=== PATIENT | female | born 1950 | race Caucasian/White ===

== ENCOUNTER 2019-10-20 14:24 | Inpatient (IN) ==
[2019-10-20] MEDS ORDERED: SODIUM CHLORIDE 0.9% 1,000 ML IV STA (14:53)
[2019-10-20 15:09] LABS: Basophils # 0.2 10*3/uL (0.0-0.2); Basophils % 1.5 % (0.0-0.8); Eosinophils # 0.1 10*3/uL (0.0-0.87); Eosinophils % 0.8 % (0.00-10.9); Hematocrit 41.6 VOL% (35.7-47.0); Hemoglobin 12.6 GM/DL (12.0-16.0); Immature Granulocytes % 0.4 %; Immature Granulocytes Absolute 0.04 #; Lymphocytes % 27.3 % (21.3-54.2); Mean Corpuscular HGB Conc 30.3 GM/DL (32-36); Mean Corpuscular Volume 76.8 FL (87-102); Mean Platelet Volume 10.1 FL (9.6-12.0); Monocytes % 5.8 % (1.7-12.7); Neutrophils % 64.2 % (38.7-73.9); Platelet Count 326 T/CUMM (130-400); Red Blood Count 5.42 MC/CUMM (3.8-5.5); Red Cell Distribution Width 18.6 % (9.3-17.3)
[2019-10-20 15:18] LABS: Albumin 2.7 G/DL (3.4-5.0); Bilirubin,Total 0.6 MG/DL (0.2-1.0); Osmolality,Calculated 274.7 MOS/KG (273-304)
[2019-10-20 15:20] LABS: PT Patient Result 10.4 SECS (9.6-12.2)
[2019-10-20] MEDS ORDERED: ACETAMINOPHEN 325 MG TABLET PO PRN (16:22)
[2019-10-20] MEDS ORDERED: ONDANSETRON 4 MG/2 ML VIAL IV PRN (16:22)
[2019-10-20] MEDS: SODIUM CHLORIDE 0.9% 1,000 ML IV SCH (18:55)
[2019-10-20] MEDS: PANTOPRAZOLE 40 MG VIAL IV SCH (21:06)
[2019-10-20] MEDS: POLYETHYLENE GLYCOL POWDER 17 GM PACK PO SCH (21:08)
[2019-10-21 02:09] LABS: Apearance,Urine CLEAR (Clear); Bacteria,Urine Occasional /HPF (Few); Bilirubin,Urine Negative (Negative); Blood, Urine Large mg/dL (Negative); Glucose,Urine (UA) Negative (Negative); Ketones,Urine Negative (Negative); Mucus,Urine Occasional /LPF (Occasional); Nitrite,Urine Negative (Negative); Protein,Urine Negative; RBC,Urine 2 /HPF (0-4); Squamous Epithelial Cell,Urine Occasional /HPF (0-10); Urine Color Yellow (Yellow); Urine Specific Gravity 1.009 (1.001-1.035); Urine Urobilinogen < 2.0 EU/DL (0.2-1.0); WBC,Urine 1 /HPF (0-6)
[2019-10-21 06:11] LABS: Basophils # 0.2 10*3/uL (0.0-0.2); Basophils % 2.1 % (0.0-0.8); Eosinophils # 0.3 10*3/uL (0.0-0.87); Eosinophils % 3.2 % (0.00-10.9); Hematocrit 35.8 VOL% (35.7-47.0); Hemoglobin 10.8 GM/DL (12.0-16.0); Immature Granulocytes % 0.3 %; Immature Granulocytes Absolute 0.03 #; Lymphocytes # 2.5 10*3/uL (1.4-4.0); Lymphocytes % 25.6 % (21.3-54.2); Mean Corpuscular HGB Conc 30.2 GM/DL (32-36); Mean Corpuscular Volume 77.5 FL (87-102); Neutrophils % 62.8 % (38.7-73.9); Platelet Count 301 T/CUMM (130-400); Red Blood Count 4.62 MC/CUMM (3.8-5.5); Red Cell Distribution Width 17.9 % (9.3-17.3); White Blood Count 9.6 T/CUMM (4-12)
[2019-10-21 06:12] LABS: Calcium 8.2 MG/DL (8.5-10.1); Osmolality,Calculated 280.1 MOS/KG (273-304); Thyroid Stimulating Hormone 0.029 uIU/ml (0.358-3.74)
[2019-10-21] MEDS: LEVOTHYROXINE 88 MCG TABLET PO SCH (06:35)
[2019-10-21] MEDS: SODIUM CHLORIDE 0.9% 1,000 ML IV SCH ×2 (06:36→22:46)
[2019-10-21] MEDS: PANTOPRAZOLE 40 MG VIAL IV SCH ×2 (09:08→20:35)
[2019-10-21] MEDS: PARoxetine 20 MG TABLET PO SCH (09:08)
[2019-10-21] MEDS: SIMVASTATIN 20 MG TABLET PO SCH (09:08)
[2019-10-21] MEDS: POLYETHYLENE GLYCOL POWDER 17 GM PACK PO SCH ×4 (09:08→20:35)
[2019-10-21] MEDS: amLODIPine 5 MG TABLET PO SCH (09:08)
[2019-10-21] MEDS: NICOTINE 21 MG/24 HR PATCH TRANSDERM SCH (16:48)
[2019-10-22 04:59] LABS: Basophils # 0.1 10*3/uL (0.0-0.2); Basophils % 1.4 % (0.0-0.8); Eosinophils # 0.4 10*3/uL (0.0-0.87); Eosinophils % 4.3 % (0.00-10.9); Hematocrit 34.8 VOL% (35.7-47.0); Hemoglobin 10.5 GM/DL (12.0-16.0); Immature Granulocytes % 0.2 %; Immature Granulocytes Absolute 0.02 #; Lymphocytes # 2.8 10*3/uL (1.4-4.0); Lymphocytes % 28.2 % (21.3-54.2); Mean Corpuscular HGB Conc 30.2 GM/DL (32-36); Mean Corpuscular Volume 76.7 FL (87-102); Mean Platelet Volume 10.1 FL (9.6-12.0); Monocytes % 6.6 % (1.7-12.7); Neutrophils % 59.3 % (38.7-73.9); Platelet Count 306 T/CUMM (130-400); Red Blood Count 4.54 MC/CUMM (3.8-5.5); Red Cell Distribution Width 17.6 % (9.3-17.3)
[2019-10-22 05:43] LABS: Calcium 8.1 MG/DL (8.5-10.1); Osmolality,Calculated 274.4 MOS/KG (273-304)
[2019-10-22] MEDS: LEVOTHYROXINE 88 MCG TABLET PO SCH (06:27)
[2019-10-22] MEDS ORDERED: MAGNESIUM SULF RIDER 2 GM in PREMIX 1 EACH IV PRN (07:50)
[2019-10-22] MEDS ORDERED: MAGNESIUM SULF RIDER 4 GM in PREMIX 1 EACH IV PRN (07:50)
[2019-10-22] MEDS: PANTOPRAZOLE 40 MG VIAL IV SCH (08:12)
[2019-10-22] MEDS: amLODIPine 5 MG TABLET PO SCH (08:13)
[2019-10-22] MEDS: SIMVASTATIN 20 MG TABLET PO SCH (08:13)
[2019-10-22] MEDS: POLYETHYLENE GLYCOL POWDER 17 GM PACK PO SCH ×2 (08:13→12:04)
[2019-10-22] MEDS: NICOTINE 21 MG/24 HR PATCH TRANSDERM SCH (08:13)
[2019-10-22] MEDS: PARoxetine 20 MG TABLET PO SCH (08:13)
[2019-10-22] MEDS: SODIUM CHLORIDE 0.9% 1,000 ML IV SCH (09:31)
[2019-10-22] MEDS: POTASSIUM CHLORIDE 20 MEQ TABLET PO PRN ×3 (09:32→13:25)
[2019-10-22 12:18] VITALS: BP 136/67
== END 2019-10-22 14:00 | disposition home or self-care (01) | DRG 379 ==
LOC: EDUNIT# → EDBD → N.ED 14:24 → SUATTDRO 15:23 → N.EDINP 15:23 → N.3E 17:46
PROVIDERS: ADMIT Internal Medicine; ATTEND Hospitalist

== ENCOUNTER 2020-01-12 12:32 | Inpatient (IN) ==
[2020-01-12] MEDS ORDERED: FUROSEMIDE 100 MG/10 ML VIAL IV STA (12:56)
[2020-01-12] MEDS ORDERED: ALBUTEROL/IPRATROPIUM 3 ML NEB RESP TX STA (12:56)
[2020-01-12 13:13] LABS: Basophils # 0.2 10*3/uL (0.0-0.2); Basophils % 1.2 % (0.0-0.8); Eosinophils # 0.1 10*3/uL (0.0-0.87); Eosinophils % 0.6 % (0.00-10.9); Hematocrit 38.6 VOL% (35.7-47.0); Hemoglobin 11.2 GM/DL (12.0-16.0); Immature Granulocytes % 0.5 %; Immature Granulocytes Absolute 0.07 #; Lymphocytes # 2.2 10*3/uL (1.4-4.0); Lymphocytes % 15.7 % (21.3-54.2); Mean Corpuscular Volume 72.7 FL (87-102); Monocytes % 6.1 % (1.7-12.7); Neutrophils % 75.9 % (38.7-73.9); Platelet Count 387 T/CUMM (130-400); Red Blood Count 5.31 MC/CUMM (3.8-5.5); Red Cell Distribution Width 17.8 % (9.3-17.3); White Blood Count 14.3 T/CUMM (4-12)
[2020-01-12 13:37] LABS: Albumin 3.1 G/DL (3.4-5.0); Bilirubin,Total 0.8 MG/DL (0.2-1.0); Calcium 8.2 MG/DL (8.5-10.1); Osmolality,Calculated 268.2 MOS/KG (273-304); Total Protein 8.1 G/DL (6.4-8.3)
[2020-01-12] MEDS ORDERED: FUROSEMIDE 20 MG/2 ML VIAL IV STA (14:57)
[2020-01-12] MEDS ORDERED: MAGNESIUM SULF RIDER 2 GM in PREMIX 1 EACH IV PRN (14:57)
[2020-01-12] MEDS ORDERED: MAGNESIUM SULF RIDER 4 GM in PREMIX 1 EACH IV PRN (14:57)
[2020-01-12] MEDS ORDERED: ONDANSETRON 4 MG/2 ML VIAL IV PRN (14:57)
[2020-01-12] MEDS ORDERED: ACETAMINOPHEN 325 MG TABLET PO PRN (14:57)
[2020-01-12 15:28] LABS: ABG Base Excess 9.5 MMOL/L (-2.5-2.5); ABG Oxygen Saturation 87.4 % (95-100); ABG PCO2 46.6 MM HG (35-48); ABG PH 7.476 (7.35-7.45); ABG TCO2 30.9 MMOL/L (23-27)
[2020-01-12] MEDS: NICOTINE 21 MG/24 HR PATCH TRANSDERM SCH (16:42)
[2020-01-12] MEDS: POTASSIUM CHLORIDE 20 MEQ TABLET PO PRN ×2 (17:15→23:00)
[2020-01-12] MEDS: ENOXAPARIN 40 MG/0.4 ML SYRINGE SUBCUT SCH (22:02)
[2020-01-13] MEDS: POTASSIUM CHLORIDE 20 MEQ TABLET PO PRN ×3 (01:00→13:26)
[2020-01-13 06:07] LABS: Basophils # 0.2 10*3/uL (0.0-0.2); Basophils % 1.3 % (0.0-0.8); Eosinophils # 0.2 10*3/uL (0.0-0.87); Eosinophils % 1.6 % (0.00-10.9); Immature Granulocytes % 0.4 %; Immature Granulocytes Absolute 0.05 #; Lymphocytes # 2.2 10*3/uL (1.4-4.0); Lymphocytes % 16.1 % (21.3-54.2); Mean Corpuscular HGB Conc 29.2 GM/DL (32-36); Mean Corpuscular Volume 71.3 FL (87-102); Monocytes % 7.2 % (1.7-12.7); Neutrophils % 73.4 % (38.7-73.9); Platelet Count 380 T/CUMM (130-400); Red Blood Count 5.23 MC/CUMM (3.8-5.5); Red Cell Distribution Width 17.5 % (9.3-17.3); White Blood Count 13.5 T/CUMM (4-12)
[2020-01-13 06:37] LABS: Albumin 2.8 G/DL (3.4-5.0); Bilirubin,Total 1.1 MG/DL (0.2-1.0); Calcium 8.6 MG/DL (8.5-10.1); Osmolality,Calculated 268.2 MOS/KG (273-304); Thyroid Stimulating Hormone 0.077 uIU/ml (0.358-3.74); Total Protein 7.3 G/DL (6.4-8.3)
[2020-01-13 06:39] LABS: Hematocrit 36.9 VOL% (35.7-47.0)
[2020-01-13 06:40] LABS: Hemoglobin 10.9 GM/DL (12.0-16.0)
[2020-01-13] MEDS: lisinopriL 5 MG TABLET PO SCH (09:06)
[2020-01-13] MEDS: NICOTINE 21 MG/24 HR PATCH TRANSDERM SCH (09:06)
[2020-01-13] MEDS: FUROSEMIDE 40 MG/4 ML VIAL IV SCH ×2 (09:06→16:53)
[2020-01-13] MEDS: PANTOPRAZOLE 40 MG TABLET PO SCH (09:06)
[2020-01-13] MEDS: ALBUTEROL/IPRATROPIUM 3 ML NEB RESP TX SCH ×3 (11:29→20:35)
[2020-01-13] MEDS: ENOXAPARIN 40 MG/0.4 ML SYRINGE SUBCUT SCH (22:04)
[2020-01-14] MEDS: ALBUTEROL/IPRATROPIUM 3 ML NEB RESP TX SCH ×4 (02:25→10:45)
[2020-01-14 04:57] LABS: Basophils # 0.2 10*3/uL (0.0-0.2); Basophils % 1.3 % (0.0-0.8); Eosinophils # 0.2 10*3/uL (0.0-0.87); Eosinophils % 1.6 % (0.00-10.9); Immature Granulocytes % 0.3 %; Immature Granulocytes Absolute 0.04 #; Lymphocytes # 2.5 10*3/uL (1.4-4.0); Lymphocytes % 19.1 % (21.3-54.2); Mean Corpuscular HGB Conc 29.3 GM/DL (32-36); Mean Corpuscular Volume 71.1 FL (87-102); Mean Platelet Volume 9.1 FL (9.6-12.0); Monocytes % 7.4 % (1.7-12.7); Neutrophils % 70.3 % (38.7-73.9); Platelet Count 398 T/CUMM (130-400); Red Blood Count 5.09 MC/CUMM (3.8-5.5); Red Cell Distribution Width 17.5 % (9.3-17.3); White Blood Count 12.8 T/CUMM (4-12)
[2020-01-14 05:17] LABS: Hematocrit 36.1 VOL% (35.7-47.0); Hemoglobin 10.6 GM/DL (12.0-16.0)
[2020-01-14 05:20] LABS: Albumin 2.7 G/DL (3.4-5.0); Bilirubin,Total 0.7 MG/DL (0.2-1.0); Calcium 8.4 MG/DL (8.5-10.1); Osmolality,Calculated 266.5 MOS/KG (273-304); Total Protein 7.2 G/DL (6.4-8.3)
[2020-01-14] MEDS: FUROSEMIDE 40 MG/4 ML VIAL IV SCH (09:15)
[2020-01-14] MEDS: NICOTINE 21 MG/24 HR PATCH TRANSDERM SCH (09:16)
[2020-01-14] MEDS: lisinopriL 5 MG TABLET PO SCH (09:16)
[2020-01-14] MEDS: PANTOPRAZOLE 40 MG TABLET PO SCH (09:16)
[2020-01-14 12:36] VITALS: BP 96/51
[2020-01-14] MEDS ORDERED: SPIRONOLACTONE 50 MG TABLET PO SCH (13:17)
== END 2020-01-14 14:50 | disposition home or self-care (01) | DRG 291 ==
LOC: N.ED 12:32 → N.EDINP 14:57 → N.TELEN 15:29
PROVIDERS: ADMIT Family Medicine; ATTEND Family Medicine

== ENCOUNTER 2022-02-21 11:37 | Inpatient (IN) ==
[2022-02-21] MEDS ORDERED: SODIUM CHLORIDE 0.9% 500 ML IV STA (13:28)
[2022-02-21 14:37] LABS: Albumin 2.3 G/DL (3.4-5.0); Bilirubin,Total 1.6 MG/DL (0.20-1.00); Osmolality,Calculated 276.2 MOS/KG (273-304); Potassium 4.9 MMOL/L (3.5-5.1); Total Protein 5.9 G/DL (6.4-8.2)
[2022-02-21 14:42] LABS: Basophils % 0.1 % (0.0-0.8); Eosinophils # 0.1 10*3/uL (0.0-0.87); Eosinophils % 0.5 % (0.00-10.9); Hematocrit 48.6 VOL% (35.7-47.0); Hemoglobin 14.8 GM/DL (12.0-16.0); Immature Granulocytes % 0.8 %; Immature Granulocytes Absolute 0.17 #; Lymphocytes # 2.4 10*3/uL (1.4-4.0); Mean Corpuscular HGB Conc 30.5 GM/DL (32-36); Mean Corpuscular Volume 76.5 FL (87-102); Mean Platelet Volume 8.5 FL (9.6-12.0); Neutrophils % 79.6 % (38.7-73.9); Platelet Count 350 T/CUMM (130-400); Red Blood Count 6.35 MC/CUMM (3.8-5.5); Red Cell Distribution Width 22.9 % (9.3-17.3)
[2022-02-21 15:16] LABS: Atypical Lymphocytes Few; Eosinophils 1 % (0-10); Hypochromia Slight; Lymphocytes 9 % (20-55); Platelet Estimate Normal; Segmented Neutrophils 82 % (50-85); Total Cells Counted 100
[2022-02-21 15:57] LABS: Amorphous Crystals,Urine Occasional /HPF (Few); Bacteria,Urine Occasional /HPF (Few); RBC,Urine <1 /HPF (0-4)
[2022-02-21] MEDS ORDERED: GLUCAGON 1 MG VIAL IM PRN (15:58)
[2022-02-21] MEDS ORDERED: ONDANSETRON 4 MG/2 ML VIAL IV PRN (15:58)
[2022-02-21] MEDS ORDERED: ACETAMINOPHEN 325 MG TABLET PO PRN (15:58)
[2022-02-21 15:59] LABS: Bilirubin,Urine Negative (Negative); Blood, Urine Negative (Negative); Glucose,Urine (UA) Negative (Negative); Ketones,Urine Negative (Negative); Nitrite,Urine Negative (Negative); Protein,Urine Negative (Negative); Urine Appearance Clear (Clear); Urine Color Yellow (Yellow); Urine Specific Gravity 1.015 (1.001-1.035); Urine Urobilinogen 0.2 eU/dL (<2.0); Urine pH 5.5 (4.5-8.0)
[2022-02-21] MEDS ORDERED: DEXTROSE 10% 250 ML BAG IV PRN (16:07)
[2022-02-21] MEDS ORDERED: ALBUTEROL 2.5 MG/3 ML NEB RESP TX PRN (16:10)
[2022-02-21] MEDS: ALBUTEROL/IPRATROPIUM 3 ML NEB RESP TX SCH (19:50)
[2022-02-21 21:13] LABS: Arterial Base Excess iSTAT 2 MMOL/L (-2.5-2.5); Arterial Bicarbonate iSTAT 27.6 MMOL/L (20-26); Arterial O2 Saturation iSTAT 90 % (95-100); Arterial PCO2 iSTAT 45 MM HG (35-48); Arterial PO2 iSTAT 59 MM HG (80-95); Arterial Total CO2 iSTAT 29 MMO/L (23-27); Arterial pH iSTAT 7.397 (7.35-7.45)
[2022-02-21] MEDS: NON-FORMULARY MEDICATION (Budesonide-Glycopyr-Formoterol [Breztri Aerosphere] 160-9-4.8 mc INH SCH (21:52)
[2022-02-21] MEDS: NON-FORMULARY MEDICATION (Fluticasone Furoate-Vilanterol [Breo Ellipta] 200-25 mcg/dose Bl INH SCH (21:52)
[2022-02-22] MEDS: ALBUTEROL/IPRATROPIUM 3 ML NEB RESP TX SCH ×7 (00:11→23:51)
[2022-02-22 05:49] LABS: Basophils % 0.1 % (0.0-0.8); Eosinophils # 0.1 10*3/uL (0.0-0.87); Eosinophils % 0.5 % (0.00-10.9); Hematocrit 47.7 VOL% (35.7-47.0); Hemoglobin 14.6 GM/DL (12.0-16.0); Immature Granulocytes % 0.6 %; Immature Granulocytes Absolute 0.09 #; Lymphocytes # 1.8 10*3/uL (1.4-4.0); Lymphocytes % 11.4 % (21.3-54.2); Mean Corpuscular HGB Conc 30.6 GM/DL (32-36); Mean Corpuscular Volume 77.3 FL (87-102); Mean Platelet Volume 9.1 FL (9.6-12.0); Monocytes % 6.5 % (1.7-12.7); Neutrophils % 80.9 % (38.7-73.9); Platelet Count 367 T/CUMM (130-400); Red Blood Count 6.17 MC/CUMM (3.8-5.5); Red Cell Distribution Width 22.7 % (9.3-17.3); White Blood Count 15.9 T/CUMM (4-12)
[2022-02-22 05:56] LABS: Platelet Estimate Normal
[2022-02-22 05:57] LABS: Anisocytosis Slight; Target Cells Few
[2022-02-22 05:58] LABS: Albumin 2.2 G/DL (3.4-5.0); Bilirubin,Total 2.1 MG/DL (0.20-1.00); Calcium 8.4 MG/DL (8.5-10.1); Osmolality,Calculated 275.1 MOS/KG (273-304); Total Protein 5.7 G/DL (6.4-8.2)
[2022-02-22 06:04] LABS: Potassium 4.9 MMOL/L (3.5-5.1)
[2022-02-22] MEDS: LEVOTHYROXINE 75 MCG TABLET PO SCH (06:23)
[2022-02-22] MEDS: PANTOPRAZOLE 40 MG TABLET PO SCH (08:02)
[2022-02-22] MEDS: ASPIRIN EC 81 MG TABLET PO SCH (08:02)
[2022-02-22] MEDS: PARoxetine 20 MG TABLET PO SCH (08:03)
[2022-02-22] MEDS ORDERED: FUROSEMIDE 40 MG/4 ML VIAL IV SCH (09:00)
[2022-02-22] MEDS: LOSARTAN 25 MG TABLET PO SCH (09:47)
[2022-02-22] MEDS: SIMVASTATIN 20 MG TABLET PO SCH (09:47)
[2022-02-22] MEDS: NON-FORMULARY MEDICATION (Budesonide-Glycopyr-Formoterol [Breztri Aerosphere] 160-9-4.8 mc INH SCH ×2 (10:35→21:43)
[2022-02-22] MEDS: NON-FORMULARY MEDICATION (Fluticasone Furoate-Vilanterol [Breo Ellipta] 200-25 mcg/dose Bl INH SCH (10:36)
[2022-02-23] MEDS: ALBUTEROL/IPRATROPIUM 3 ML NEB RESP TX SCH ×6 (03:15→23:37)
[2022-02-23] MEDS: LEVOTHYROXINE 75 MCG TABLET PO SCH (06:37)
[2022-02-23 07:20] LABS: Calcium 7.9 MG/DL (8.5-10.1); Osmolality,Calculated 273.1 MOS/KG (273-304); Potassium 3.9 MMOL/L (3.5-5.1)
[2022-02-23 07:26] LABS: Basophils % 0.3 % (0.0-0.8); Eosinophils # 0.1 10*3/uL (0.0-0.87); Eosinophils % 0.9 % (0.00-10.9); Hematocrit 43.3 VOL% (35.7-47.0); Hemoglobin 13.2 GM/DL (12.0-16.0); Immature Granulocytes % 0.5 %; Immature Granulocytes Absolute 0.07 #; Lymphocytes % 14.1 % (21.3-54.2); Mean Corpuscular HGB Conc 30.5 GM/DL (32-36); Mean Platelet Volume 9.2 FL (9.6-12.0); Monocytes % 7.6 % (1.7-12.7); Neutrophils % 76.6 % (38.7-73.9); Platelet Count 309 T/CUMM (130-400); Red Cell Distribution Width 21.7 % (9.3-17.3)
[2022-02-23] MEDS: LOSARTAN 25 MG TABLET PO SCH (08:03)
[2022-02-23 08:23] LABS: Free T4 (Free Thyroxine) 0.93 NG/DL (0.76-1.46)
[2022-02-23] MEDS: PANTOPRAZOLE 40 MG TABLET PO SCH (08:54)
[2022-02-23] MEDS: ASPIRIN EC 81 MG TABLET PO SCH (08:54)
[2022-02-23] MEDS: PARoxetine 20 MG TABLET PO SCH (08:55)
[2022-02-23] MEDS: predniSONE 20 MG TABLET PO SCH (08:55)
[2022-02-23] MEDS: ENOXAPARIN 40 MG/0.4 ML SYRINGE SUBCUT SCH (08:55)
[2022-02-23] MEDS: SIMVASTATIN 20 MG TABLET PO SCH (08:55)
[2022-02-23] MEDS: LIDOCAINE 5% PATCH TRANSDERM SCH (08:56)
[2022-02-23] MEDS: NON-FORMULARY MEDICATION (Budesonide-Glycopyr-Formoterol [Breztri Aerosphere] 160-9-4.8 mc INH SCH ×2 (09:35→20:50)
[2022-02-24] MEDS: ALBUTEROL/IPRATROPIUM 3 ML NEB RESP TX SCH ×6 (03:31→23:50)
[2022-02-24] MEDS: LEVOTHYROXINE 75 MCG TABLET PO SCH (06:26)
[2022-02-24 06:36] LABS: Basophils % 0.2 % (0.0-0.8); Eosinophils # 0.1 10*3/uL (0.0-0.87); Eosinophils % 0.9 % (0.00-10.9); Hematocrit 42.3 VOL% (35.7-47.0); Hemoglobin 12.8 GM/DL (12.0-16.0); Immature Granulocytes % 0.6 %; Immature Granulocytes Absolute 0.06 #; Lymphocytes # 2.5 10*3/uL (1.4-4.0); Lymphocytes % 23.3 % (21.3-54.2); Mean Corpuscular HGB Conc 30.3 GM/DL (32-36); Mean Corpuscular Volume 76.9 FL (87-102); Mean Platelet Volume 9.2 FL (9.6-12.0); Monocytes % 7.6 % (1.7-12.7); Neutrophils % 67.4 % (38.7-73.9); Platelet Count 283 T/CUMM (130-400); Red Cell Distribution Width 21.5 % (9.3-17.3); White Blood Count 10.5 T/CUMM (4-12)
[2022-02-24 06:48] LABS: Calcium 7.9 MG/DL (8.5-10.1); Osmolality,Calculated 270.2 MOS/KG (273-304); Potassium 3.8 MMOL/L (3.5-5.1)
[2022-02-24] MEDS: LOSARTAN 25 MG TABLET PO SCH (09:07)
[2022-02-24] MEDS: PARoxetine 20 MG TABLET PO SCH (09:07)
[2022-02-24] MEDS: SIMVASTATIN 20 MG TABLET PO SCH (09:07)
[2022-02-24] MEDS: ASPIRIN EC 81 MG TABLET PO SCH (09:07)
[2022-02-24] MEDS: PANTOPRAZOLE 40 MG TABLET PO SCH (09:07)
[2022-02-24] MEDS: LIDOCAINE 5% PATCH TRANSDERM SCH (09:11)
[2022-02-24] MEDS: ENOXAPARIN 40 MG/0.4 ML SYRINGE SUBCUT SCH (09:13)
[2022-02-24] MEDS: NON-FORMULARY MEDICATION (Budesonide-Glycopyr-Formoterol [Breztri Aerosphere] 160-9-4.8 mc INH SCH ×2 (10:11→20:47)
[2022-02-25] MEDS: ALBUTEROL/IPRATROPIUM 3 ML NEB RESP TX SCH ×5 (03:30→19:54)
[2022-02-25 07:27] LABS: Calcium 8.3 MG/DL (8.5-10.1); Osmolality,Calculated 268.1 MOS/KG (273-304); Potassium 4.5 MMOL/L (3.5-5.1)
[2022-02-25 07:37] LABS: Basophils # 0.1 10*3/uL (0.0-0.2); Basophils % 0.7 % (0.0-0.8); Eosinophils # 0.2 10*3/uL (0.0-0.87); Eosinophils % 2.1 % (0.00-10.9); Hematocrit 44.5 VOL% (35.7-47.0); Hemoglobin 13.4 GM/DL (12.0-16.0); Immature Granulocytes % 0.6 %; Immature Granulocytes Absolute 0.06 #; Lymphocytes # 2.2 10*3/uL (1.4-4.0); Lymphocytes % 20.5 % (21.3-54.2); Mean Corpuscular HGB Conc 30.1 GM/DL (32-36); Mean Corpuscular Volume 77.8 FL (87-102); Neutrophils % 68.1 % (38.7-73.9); Platelet Count 311 T/CUMM (130-400); Red Blood Count 5.72 MC/CUMM (3.8-5.5); Red Cell Distribution Width 22.1 % (9.3-17.3); White Blood Count 10.7 T/CUMM (4-12)
[2022-02-25 07:38] LABS: Anisocytosis Slight; Platelet Estimate Normal; Target Cells Few
[2022-02-25 07:39] LABS: Macrocytosis Slight
[2022-02-25] MEDS: LEVOTHYROXINE 100 MCG TABLET PO SCH (07:52)
[2022-02-25] MEDS: ASPIRIN EC 81 MG TABLET PO SCH (08:35)
[2022-02-25] MEDS: LIDOCAINE 5% PATCH TRANSDERM SCH (08:36)
[2022-02-25] MEDS: NON-FORMULARY MEDICATION (Budesonide-Glycopyr-Formoterol [Breztri Aerosphere] 160-9-4.8 mc INH SCH ×2 (08:36→20:12)
[2022-02-25] MEDS: LOSARTAN 25 MG TABLET PO SCH (08:36)
[2022-02-25] MEDS: PANTOPRAZOLE 40 MG TABLET PO SCH (08:36)
[2022-02-25] MEDS: predniSONE 20 MG TABLET PO SCH (08:36)
[2022-02-25] MEDS: PARoxetine 20 MG TABLET PO SCH (08:36)
[2022-02-25] MEDS ORDERED: TISSUE ADHESIVE 1 EACH APPLICATOR TOP ONE (09:07)
[2022-02-25] MEDS ORDERED: DEXAMETHASONE 10 MG/1 ML VIAL ONE (09:07)
[2022-02-25] MEDS ORDERED: LIDOCAINE 1% 50 ML VIAL ONE (09:08)
[2022-02-25] MEDS ORDERED: CLINDAMYCIN INJ 300 MG/50 ML PREMIX IV ONE (09:25)
[2022-02-25] MEDS ORDERED: LIDOCAINE 2% 5 ML VIAL ONE (09:25)
[2022-02-25] MEDS ORDERED: propofoL 200 MG/20 ML VIAL IV ONE (09:25)
[2022-02-25] MEDS ORDERED: fentaNYL 100 MCG/2 ML VIAL ONE (09:25)
[2022-02-25] MEDS ORDERED: METOPROLOL TARTRATE 5 MG/5 ML VIAL IV ONE (12:05)
[2022-02-25] MEDS ORDERED: DEXTROSE 5% NACL 0.45% 500 ML IV ONE (12:10)
[2022-02-25] MEDS ORDERED: DEXTROSE 5% NACL 0.45% 500 ML IV SCH (12:10)
[2022-02-25] MEDS ORDERED: DIGOXIN 0.5 MG/2 ML AMP IV ONE (12:20)
[2022-02-25] MEDS ORDERED: ALBUTEROL/IPRATROPIUM 3 ML NEB RESP TX PRN (20:47)
[2022-02-25] MEDS ORDERED: SIMVASTATIN 20 MG TABLET PO SCH (21:00)
[2022-02-26] MEDS: ALBUTEROL/IPRATROPIUM 3 ML NEB RESP TX SCH ×3 (00:12→07:20)
[2022-02-26] MEDS: LEVOTHYROXINE 100 MCG TABLET PO SCH (05:30)
[2022-02-26 06:25] LABS: Calcium 8.2 MG/DL (8.5-10.1); Osmolality,Calculated 267.1 MOS/KG (273-304); Potassium 4.5 MMOL/L (3.5-5.1)
[2022-02-26 06:33] LABS: Basophils % 0.4 % (0.0-0.8); Eosinophils # 0.2 10*3/uL (0.0-0.87); Eosinophils % 2.2 % (0.00-10.9); Immature Granulocytes % 0.3 %; Immature Granulocytes Absolute 0.03 #; Lymphocytes # 1.7 10*3/uL (1.4-4.0); Lymphocytes % 18.7 % (21.3-54.2); Mean Corpuscular HGB Conc 29.8 GM/DL (32-36); Mean Platelet Volume 9.7 FL (9.6-12.0); Monocytes % 7.7 % (1.7-12.7); Neutrophils % 70.7 % (38.7-73.9); Platelet Count 269 T/CUMM (130-400); Red Blood Count 5.52 MC/CUMM (3.8-5.5); Red Cell Distribution Width 21.7 % (9.3-17.3); White Blood Count 8.9 T/CUMM (4-12)
[2022-02-26 06:34] LABS: Hematocrit 43.6 VOL% (35.7-47.0)
[2022-02-26] MEDS: ASPIRIN EC 81 MG TABLET PO SCH (08:15)
[2022-02-26] MEDS: PANTOPRAZOLE 40 MG TABLET PO SCH (08:15)
[2022-02-26] MEDS: PARoxetine 20 MG TABLET PO SCH (08:15)
[2022-02-26] MEDS: LIDOCAINE 5% PATCH TRANSDERM SCH (08:16)
[2022-02-26] MEDS ORDERED: LOSARTAN 25 MG TABLET PO SCH (09:00)
[2022-02-26] MEDS ORDERED: METOPROLOL SUCCINATE XL 25 MG TABLET PO SCH (09:00)
[2022-02-26] MEDS: NON-FORMULARY MEDICATION (Budesonide-Glycopyr-Formoterol [Breztri Aerosphere] 160-9-4.8 mc INH SCH (11:07)
[2022-02-26] MEDS: ENOXAPARIN 40 MG/0.4 ML SYRINGE SUBCUT SCH (11:11)
[2022-02-26 11:43] VITALS: BP 99/48
[2022-02-26] MEDS ORDERED: DIGOXIN 0.125 MG TABLET PO SCH (13:00)
== END 2022-02-26 12:42 | disposition home health service (06) | DRG 982 ==
LOC: SUATTDRO → N.ED 11:37 → SUATTDRO 15:58 → N.EDINP 15:58 → N.3E 19:30
PROVIDERS: ADMIT Internal Medicine; ATTEND Internal Medicine

== ENCOUNTER 2022-02-26 17:48 | Inpatient (IN) ==
[2022-02-26] MEDS ORDERED: SODIUM CHLORIDE 0.9% 500 ML IV STA (18:14)
[2022-02-26 18:54] LABS: Albumin 2.3 G/DL (3.4-5.0); Bilirubin,Total 1.2 MG/DL (0.20-1.00); Calcium 8.1 MG/DL (8.5-10.1); Osmolality,Calculated 272.1 MOS/KG (273-304); Total Protein 5.2 G/DL (6.4-8.2)
[2022-02-26 19:00] LABS: Thyroid Stimulating Hormone 17.2 uIU/ml (0.358-3.74)
[2022-02-26 19:02] LABS: Basophils # 0.1 10*3/uL (0.0-0.2); Basophils % 0.5 % (0.0-0.8); Eosinophils # 0.1 10*3/uL (0.0-0.87); Eosinophils % 0.4 % (0.00-10.9); Immature Granulocytes % 0.8 %; Immature Granulocytes Absolute 0.12 #; Lymphocytes # 1.4 10*3/uL (1.4-4.0); Lymphocytes % 9.7 % (21.3-54.2); Mean Corpuscular HGB Conc 28.9 GM/DL (32-36); Mean Corpuscular Volume 80.2 FL (87-102); Mean Platelet Volume 9.7 FL (9.6-12.0); Monocytes % 5.6 % (1.7-12.7); Platelet Count 294 T/CUMM (130-400); Red Blood Count 5.86 MC/CUMM (3.8-5.5); White Blood Count 14.2 T/CUMM (4-12)
[2022-02-26 19:07] LABS: Hemoglobin 13.6 GM/DL (12.0-16.0)
[2022-02-26 20:29] LABS: ABG Base Excess 3.6 MMOL/L (-2.5-2.5); ABG HCO3 27.2 MMOL/L (20-26); ABG Oxygen Saturation 81.7 % (95-100); ABG PCO2 53.5 MM HG (35-48); ABG PH 7.362 (7.35-7.45); ABG TCO2 26.8 MMOL/L (23-27)
[2022-02-26 20:32] LABS: Bacteria,Urine Occasional /HPF (Few); RBC,Urine 1 /HPF (0-4)
[2022-02-26 20:33] LABS: Bilirubin,Urine Negative (Negative); Blood, Urine Negative (Negative); Glucose,Urine (UA) Negative (Negative); Ketones,Urine Negative (Negative); Nitrite,Urine Negative (Negative); Protein,Urine Negative (Negative); Urine Appearance Clear (Clear); Urine Color Yellow (Yellow); Urine pH 5.5 (4.5-8.0)
[2022-02-26 20:38] LABS: Barbiturates Screen,Urine Negative (Negative); Benzodiazepines Screen,Urine Negative (Negative); Cannabinoid Screen,Urine Negative (Negative); Opiate Screen,Urine Negative (Negative); Phencyclidine Screen,Urine Negative (Negative)
[2022-02-26] MEDS ORDERED: ALBUTEROL/IPRATROPIUM 3 ML NEB RESP TX STA (21:17)
[2022-02-26] MEDS ORDERED: methylPREDNISolone SOD SUC 125 MG/2 ML VIAL IV STA (21:26)
[2022-02-26] MEDS ORDERED: ONDANSETRON 4 MG/2 ML VIAL IV PRN (23:05)
[2022-02-26] MEDS ORDERED: hydrALAZINE 20 MG/1 ML VIAL IV PRN (23:05)
[2022-02-26] MEDS ORDERED: DEXTROSE 10% 250 ML BAG IV PRN (23:05)
[2022-02-26] MEDS ORDERED: diphenhydrAMINE CAP 25 MG CAPSULE PO PRN (23:05)
[2022-02-26] MEDS ORDERED: MORPHINE 2 MG/1 ML SYRINGE IV PRN (23:05)
[2022-02-26] MEDS ORDERED: DOCUSATE SODIUM 100 MG CAPSULE PO PRN (23:05)
[2022-02-26] MEDS ORDERED: guaiFENesin/DM ER 600-30 MG TABLET PO PRN (23:05)
[2022-02-26] MEDS ORDERED: GLUCAGON 1 MG VIAL IM PRN (23:05)
[2022-02-26] MEDS ORDERED: NICOTINE 21 MG/24 HR PATCH TRANSDERM PRN (23:05)
[2022-02-26] MEDS ORDERED: ZALEPLON 5 MG CAPSULE PO PRN (23:05)
[2022-02-26] MEDS ORDERED: ACETAMINOPHEN 325 MG TABLET PO PRN (23:05)
[2022-02-27] MEDS: LEVOFLOXACIN INJ 750 MG/150 ML PREMIX IV SCH ×2 (00:40→23:13)
[2022-02-27] MEDS ORDERED: FUROSEMIDE 40 MG/4 ML VIAL IV ONE (00:49)
[2022-02-27] MEDS ORDERED: ENOXAPARIN 60 MG/0.6 ML SYRINGE SUBCUT ONE (00:50)
[2022-02-27] MEDS: methylPREDNISolone SOD SUC 125 MG/2 ML VIAL IV SCH ×2 (01:06→09:08)
[2022-02-27 05:26] LABS: Calcium 8.2 MG/DL (8.5-10.1); Osmolality,Calculated 271.2 MOS/KG (273-304); Potassium 4.3 MMOL/L (3.5-5.1)
[2022-02-27 05:35] LABS: Basophils % 0.1 % (0.0-0.8); Hemoglobin 13.7 GM/DL (12.0-16.0); Immature Granulocytes % 1.4 %; Immature Granulocytes Absolute 0.26 #; Lymphocytes # 0.4 10*3/uL (1.4-4.0); Lymphocytes % 2.2 % (21.3-54.2); Mean Corpuscular HGB Conc 29.8 GM/DL (32-36); Mean Platelet Volume 9.9 FL (9.6-12.0); Monocytes % 0.3 % (1.7-12.7); Platelet Count 265 T/CUMM (130-400); Red Blood Count 5.82 MC/CUMM (3.8-5.5); Red Cell Distribution Width 21.9 % (9.3-17.3); White Blood Count 18.8 T/CUMM (4-12)
[2022-02-27] MEDS: LEVOTHYROXINE 75 MCG TABLET PO SCH (05:41)
[2022-02-27 05:46] LABS: Lymphocytes 1 % (20-55); Platelet Estimate Adequate; Segmented Neutrophils 99 % (50-85); Total Cells Counted 100
[2022-02-27] MEDS: ALBUTEROL/IPRATROPIUM 3 ML NEB RESP TX SCH ×4 (08:56→23:00)
[2022-02-27] MEDS: PANTOPRAZOLE 40 MG TABLET PO SCH (09:07)
[2022-02-27] MEDS: ASPIRIN EC 81 MG TABLET PO SCH (09:07)
[2022-02-27] MEDS: ASCORBIC ACID 500 MG TABLET PO SCH ×2 (11:26→20:39)
[2022-02-27] MEDS: methylPREDNISolone SOD SUC 40 MG/1 ML VIAL IV SCH (16:08)
[2022-02-27] MEDS: SIMVASTATIN 20 MG TABLET PO SCH (20:39)
[2022-02-28] MEDS: methylPREDNISolone SOD SUC 40 MG/1 ML VIAL IV SCH ×3 (00:41→18:20)
[2022-02-28] MEDS: ALBUTEROL/IPRATROPIUM 3 ML NEB RESP TX SCH ×8 (03:15→23:50)
[2022-02-28] MEDS: LEVOTHYROXINE 75 MCG TABLET PO SCH (05:41)
[2022-02-28 07:10] LABS: Arterial Base Excess iSTAT 8 MMOL/L (-2.5-2.5); Arterial Bicarbonate iSTAT 33.5 MMOL/L (20-26); Arterial O2 Saturation iSTAT 90 % (95-100); Arterial PCO2 iSTAT 50 MM HG (35-48); Arterial PO2 iSTAT 58 MM HG (80-95); Arterial Total CO2 iSTAT 35 MMO/L (23-27); Arterial pH iSTAT 7.438 (7.35-7.45)
[2022-02-28 08:53] LABS: Basophils % 0.1 % (0.0-0.8); Hematocrit 42.1 VOL% (35.7-47.0); Lymphocytes # 0.5 10*3/uL (1.4-4.0); Lymphocytes % 5.2 % (21.3-54.2); Mean Corpuscular HGB Conc 29.7 GM/DL (32-36); Mean Corpuscular Volume 80.2 FL (87-102); Mean Platelet Volume 9.8 FL (9.6-12.0); Monocytes % 1.8 % (1.7-12.7); Neutrophils % 91.9 % (38.7-73.9); Platelet Count 269 T/CUMM (130-400); Red Blood Count 5.25 MC/CUMM (3.8-5.5); Red Cell Distribution Width 21.9 % (9.3-17.3); White Blood Count 10.2 T/CUMM (4-12)
[2022-02-28 08:54] LABS: Albumin 2.4 G/DL (3.4-5.0); Bilirubin,Total 0.8 MG/DL (0.20-1.00); Calcium 8.7 MG/DL (8.5-10.1); Hemoglobin 12.5 GM/DL (12.0-16.0); Osmolality,Calculated 274.8 MOS/KG (273-304); Potassium 4.2 MMOL/L (3.5-5.1); Total Protein 5.9 G/DL (6.4-8.2)
[2022-02-28 08:55] LABS: Hypochromia Slight; Lymphocytes 8 % (20-55); Microcytosis Slight; Platelet Estimate Adequate; Segmented Neutrophils 89 % (50-85); Total Cells Counted 100
[2022-02-28] MEDS: ASPIRIN EC 81 MG TABLET PO SCH (09:21)
[2022-02-28] MEDS: ASCORBIC ACID 500 MG TABLET PO SCH ×2 (09:22→21:00)
[2022-02-28] MEDS: PANTOPRAZOLE 40 MG TABLET PO SCH (09:24)
[2022-02-28] MEDS: METOPROLOL SUCCINATE XL 25 MG TABLET PO SCH (09:24)
[2022-02-28] MEDS: LEVOFLOXACIN INJ 750 MG/150 ML PREMIX IV SCH ×2 (21:00→22:30)
[2022-02-28] MEDS: SIMVASTATIN 20 MG TABLET PO SCH (21:00)
[2022-03-01] MEDS: methylPREDNISolone SOD SUC 40 MG/1 ML VIAL IV SCH ×2 (00:05→10:03)
[2022-03-01] MEDS: ALBUTEROL/IPRATROPIUM 3 ML NEB RESP TX SCH ×6 (03:50→22:47)
[2022-03-01] MEDS: LEVOTHYROXINE 75 MCG TABLET PO SCH (05:35)
[2022-03-01 06:13] LABS: Albumin 2.2 G/DL (3.4-5.0); Bilirubin,Total 0.6 MG/DL (0.20-1.00); Calcium 8.6 MG/DL (8.5-10.1); Osmolality,Calculated 273.8 MOS/KG (273-304); Potassium 4.2 MMOL/L (3.5-5.1); Total Protein 5.6 G/DL (6.4-8.2)
[2022-03-01 06:22] LABS: Basophils % 0.1 % (0.0-0.8); Immature Granulocytes % 0.8 %; Immature Granulocytes Absolute 0.09 #; Lymphocytes # 0.6 10*3/uL (1.4-4.0); Mean Corpuscular HGB Conc 29.9 GM/DL (32-36); Mean Corpuscular Volume 79.2 FL (87-102); Mean Platelet Volume 10.2 FL (9.6-12.0); Monocytes % 2.4 % (1.7-12.7); Neutrophils % 91.7 % (38.7-73.9); Platelet Count 261 T/CUMM (130-400); Red Blood Count 5.06 MC/CUMM (3.8-5.5); Red Cell Distribution Width 22.1 % (9.3-17.3)
[2022-03-01 06:25] LABS: Hematocrit 40.1 VOL% (35.7-47.0)
[2022-03-01 07:01] LABS: Anisocytosis 1+; Band Neutrophils 1 % (0-10); Lymphocytes 5 % (20-55); Ovalocytes Few; Platelet Estimate Normal; Segmented Neutrophils 91 % (50-85); Target Cells Few; Total Cells Counted 100
[2022-03-01] MEDS: PANTOPRAZOLE 40 MG TABLET PO SCH (10:01)
[2022-03-01] MEDS: ASCORBIC ACID 500 MG TABLET PO SCH ×2 (10:01→20:40)
[2022-03-01] MEDS: ASPIRIN EC 81 MG TABLET PO SCH (10:01)
[2022-03-01] MEDS: METOPROLOL SUCCINATE XL 25 MG TABLET PO SCH (10:02)
[2022-03-01] MEDS: SIMVASTATIN 20 MG TABLET PO SCH (20:40)
[2022-03-02] MEDS: ALBUTEROL/IPRATROPIUM 3 ML NEB RESP TX SCH ×6 (04:20→23:04)
[2022-03-02] MEDS: LEVOTHYROXINE 75 MCG TABLET PO SCH (06:10)
[2022-03-02 06:17] LABS: Albumin 2.3 G/DL (3.4-5.0); Bilirubin,Total 0.6 MG/DL (0.20-1.00); Calcium 8.1 MG/DL (8.5-10.1); Osmolality,Calculated 271.8 MOS/KG (273-304); Potassium 3.4 MMOL/L (3.5-5.1); Total Protein 5.4 G/DL (6.4-8.2)
[2022-03-02 06:25] LABS: Basophils % 0.1 % (0.0-0.8); Hematocrit 42.6 VOL% (35.7-47.0); Hemoglobin 12.7 GM/DL (12.0-16.0); Immature Granulocytes % 0.5 %; Immature Granulocytes Absolute 0.06 #; Lymphocytes # 1.7 10*3/uL (1.4-4.0); Lymphocytes % 13.2 % (21.3-54.2); Mean Corpuscular HGB Conc 29.8 GM/DL (32-36); Mean Corpuscular Volume 80.7 FL (87-102); Mean Platelet Volume 9.8 FL (9.6-12.0); Monocytes % 6.3 % (1.7-12.7); Neutrophils % 79.9 % (38.7-73.9); Platelet Count 266 T/CUMM (130-400); Red Blood Count 5.28 MC/CUMM (3.8-5.5); Red Cell Distribution Width 22.4 % (9.3-17.3); White Blood Count 12.6 T/CUMM (4-12)
[2022-03-02] MEDS ORDERED: LEVOFLOXACIN 750 MG TABLET PO SCH (09:00)
[2022-03-02] MEDS ORDERED: methylPREDNISolone SOD SUC 40 MG/1 ML VIAL IV SCH (09:00)
[2022-03-02] MEDS: METOPROLOL SUCCINATE XL 25 MG TABLET PO SCH (09:07)
[2022-03-02] MEDS: ASPIRIN EC 81 MG TABLET PO SCH (09:07)
[2022-03-02] MEDS: PANTOPRAZOLE 40 MG TABLET PO SCH (09:08)
[2022-03-02] MEDS: ASCORBIC ACID 500 MG TABLET PO SCH ×2 (09:08→20:25)
[2022-03-02] MEDS ORDERED: POTASSIUM CHLORIDE 20 MEQ TABLET PO ONE (10:39)
[2022-03-02] MEDS: SIMVASTATIN 20 MG TABLET PO SCH (20:25)
[2022-03-03] MEDS: ALBUTEROL/IPRATROPIUM 3 ML NEB RESP TX SCH ×6 (04:03→23:47)
[2022-03-03 06:22] LABS: Basophils % 0.1 % (0.0-0.8); Eosinophils # 0.1 10*3/uL (0.0-0.87); Eosinophils % 0.5 % (0.00-10.9); Hematocrit 43.3 VOL% (35.7-47.0); Hemoglobin 12.9 GM/DL (12.0-16.0); Immature Granulocytes % 0.7 %; Immature Granulocytes Absolute 0.08 #; Lymphocytes # 2.3 10*3/uL (1.4-4.0); Lymphocytes % 20.5 % (21.3-54.2); Mean Corpuscular HGB Conc 29.8 GM/DL (32-36); Mean Platelet Volume 9.4 FL (9.6-12.0); Monocytes % 7.1 % (1.7-12.7); Neutrophils % 71.1 % (38.7-73.9); Platelet Count 252 T/CUMM (130-400); Red Blood Count 5.41 MC/CUMM (3.8-5.5); White Blood Count 11.2 T/CUMM (4-12)
[2022-03-03] MEDS: LEVOTHYROXINE 75 MCG TABLET PO SCH (06:25)
[2022-03-03 06:35] LABS: Calcium 8.2 MG/DL (8.5-10.1); Osmolality,Calculated 272.7 MOS/KG (273-304); Potassium 3.7 MMOL/L (3.5-5.1)
[2022-03-03 06:50] LABS: Albumin 2.1 G/DL (3.4-5.0); Bilirubin,Total 0.5 MG/DL (0.20-1.00); Calcium 8.1 MG/DL (8.5-10.1); Osmolality,Calculated 272.7 MOS/KG (273-304); Potassium 3.7 MMOL/L (3.5-5.1); Total Protein 5.1 G/DL (6.4-8.2)
[2022-03-03] MEDS: ASPIRIN EC 81 MG TABLET PO SCH (08:35)
[2022-03-03] MEDS: predniSONE 20 MG TABLET PO SCH (08:35)
[2022-03-03] MEDS: METOPROLOL SUCCINATE XL 25 MG TABLET PO SCH (08:35)
[2022-03-03] MEDS: PANTOPRAZOLE 40 MG TABLET PO SCH (08:35)
[2022-03-03] MEDS: ASCORBIC ACID 500 MG TABLET PO SCH ×2 (10:07→20:45)
[2022-03-03] MEDS: SIMVASTATIN 20 MG TABLET PO SCH (20:45)
[2022-03-04] MEDS: ALBUTEROL/IPRATROPIUM 3 ML NEB RESP TX SCH ×3 (03:25→11:03)
[2022-03-04 05:40] LABS: Albumin 2.1 G/DL (3.4-5.0); Bilirubin,Total 0.5 MG/DL (0.20-1.00); Calcium 7.9 MG/DL (8.5-10.1); Potassium 3.7 MMOL/L (3.5-5.1); Total Protein 5.2 G/DL (6.4-8.2)
[2022-03-04 05:48] LABS: Basophils % 0.1 % (0.0-0.8); Eosinophils # 0.1 10*3/uL (0.0-0.87); Eosinophils % 0.8 % (0.00-10.9); Hematocrit 44.3 VOL% (35.7-47.0); Hemoglobin 13.4 GM/DL (12.0-16.0); Immature Granulocytes % 0.9 %; Lymphocytes # 2.3 10*3/uL (1.4-4.0); Mean Corpuscular HGB Conc 30.2 GM/DL (32-36); Mean Corpuscular Volume 79.2 FL (87-102); Mean Platelet Volume 9.3 FL (9.6-12.0); Monocytes % 6.1 % (1.7-12.7); Neutrophils % 72.1 % (38.7-73.9); Platelet Count 247 T/CUMM (130-400); Red Blood Count 5.59 MC/CUMM (3.8-5.5); Red Cell Distribution Width 22.2 % (9.3-17.3); White Blood Count 11.2 T/CUMM (4-12)
[2022-03-04] MEDS: LEVOTHYROXINE 75 MCG TABLET PO SCH (06:30)
[2022-03-04] MEDS: PANTOPRAZOLE 40 MG TABLET PO SCH (09:34)
[2022-03-04] MEDS: predniSONE 20 MG TABLET PO SCH (09:34)
[2022-03-04] MEDS: METOPROLOL SUCCINATE XL 25 MG TABLET PO SCH (09:35)
[2022-03-04] MEDS: ASCORBIC ACID 500 MG TABLET PO SCH (09:35)
[2022-03-04] MEDS: ASPIRIN EC 81 MG TABLET PO SCH (09:35)
[2022-03-04 12:20] VITALS: BP 136/70
== END 2022-03-04 14:28 | disposition swing bed (61) | DRG 193 ==
LOC: N.ED 17:48 → N.EDINP 22:59 → SUATTDRO 22:59 → N.TELES 23:23
PROVIDERS: ADMIT Internal Medicine; ATTEND Internal Medicine